=== PATIENT | male | born 1960 | race Caucasian/White ===

== ENCOUNTER 2017-10-19 07:27 | Day surgery (SDC) | payer OTHER | END 2017-10-19 12:00 | disposition home or self-care (01) | LOC: AMB-ENDOS 07:27 | DX: K62.1 Rectal polyp (principal) ==

== ENCOUNTER 2018-07-26 05:46 | Day surgery (SDC) | payer OTHER | END 2018-07-26 10:55 | disposition home or self-care (01) | LOC: AMB-ENDOS 05:46 | DX: D12.0 Benign neoplasm of cecum (principal); D12.2 Benign neoplasm of ascending colon; D12.3 Benign neoplasm of transverse colon; K63.5 Polyp of colon ==

== ENCOUNTER 2020-11-22 06:21 | Outpatient (CLI) | payer OTHER ==
[2020-11-27] MEDS ORDERED: COZAAR100 MG PO (14:29)
[2020-11-27] MEDS ORDERED: PROTONIX40 MG PO (14:30)
[2020-11-27] MEDS ORDERED: GLIMEPIRIDE2 MG (14:30)
[2020-11-27] MEDS ORDERED: LIPITOR40 M1 PO (14:30)
[2020-11-27] MEDS ORDERED: ZANAFLEX2 M1 PO (14:31)
[2020-11-27] MEDS ORDERED: TAMS0.4C PO (14:31)
[2020-11-27] MEDS ORDERED: GABAPENTIN600 MG PO (14:31)
[2020-11-27] MEDS ORDERED: PERCOCET 5-3251 EACH PO (14:32)
[2020-11-27] MEDS ORDERED: CYMBALTA30 MG PO (14:32)
== END 2020-11-22 06:22 | disposition home or self-care (01) ==
LOC: RAD 06:21 → LAB 06:21
PROVIDERS: ATTEND Anesthesiology Pain Medicine
DX: R07.89 Other chest pain (principal); I10 Essential (primary) hypertension; Z01.818 Encounter for other preprocedural examination; Z20.828 Contact with and (suspected) exposure to other viral communicable diseases; C61 Malignant neoplasm of prostate; E11.40 Type 2 diabetes mellitus with diabetic neuropathy, unspecified; M54.2 Cervicalgia; R06.00 Dyspnea, unspecified; E78.2 Mixed hyperlipidemia; E11.9 Type 2 diabetes mellitus without complications

== ENCOUNTER 2020-11-29 06:00 | Day surgery (SDC) | payer OTHER ==
[~2020-11-29 06:00] MED LIST: COZAAR100 MG PO; CYMBALTA30 MG PO; GABAPENTIN600 MG PO; GLIMEPIRIDE2 MG; LIPITOR40 M1 PO; PERCOCET 5-3251 EACH PO; PROTONIX40 MG PO; TAMS0.4C PO; ZANAFLEX2 M1 PO
== END 2020-11-29 10:40 | disposition home or self-care (01) ==
LOC: CIR.AMB 06:00
PROVIDERS: ATTEND Anesthesiology Pain Medicine
DX: M47.892 Other spondylosis, cervical region (principal); M50.31 Other cervical disc degeneration, high cervical region; M50.321 Other cervical disc degeneration at C4-C5 level; Z20.822 Contact with and (suspected) exposure to COVID-19